=== PATIENT | female | born 1975 | race African-American/Black ===

== ENCOUNTER 2024-08-04 15:11 | Outpatient (CLI) | payer OTHER, SELFPAY ==
[2024-08-04 16:01] LABS: Basophils Absolute Auto 0.1 K/mm3 (0.0-0.1); Basophils Percent Auto 0.5 % (0.2-1.2); Eosinophils Absolute Auto 0.1 K/mm3 (0-0.3); Hemoglobin 8.2 g/dL (12.0-15.0); Immature Granulocyte Absolute 0.05 K/mm3 (0.00-0.031); Immature Granulocyte Percent A 0.5 % (0-0.5); Lymphocytes Absolute Auto 3.65 K/mm3 (0.9-3.2); Mean Corpuscular HGB Conc 31.5 g/dl (32-36); Mean Corpuscular Hemoglobin 23.2 pg (26-34); Mean Corpuscular Volume 73.7 fl (80-100); Monocytes Absolute Auto 0.4 K/mm3 (0.1-0.6); Neutrophils Absolute Auto 6.8 K/mm3 (1.3-6.7); Platelet Count Result 377 k/mm3 (150-375); Red Blood Count 3.53 M/mm3 (4.2-5.4); Red Cell Distribution Width 16.5 % (11.5-14.5); White Blood Count 11.1 K/mm3 (4.5-10.0)
[2024-08-04 16:31] LABS: Band Neutrophils Percent 0 % (0-6); Platelet Estimate Slightly Increased (Adequate); Schistocytes None Seen
[2024-08-04 16:32] LABS: Anisocytosis 2+; Hypochromasia 1+; Microcytosis 1+ (NORMAL)
[2024-08-04 16:43] LABS: Vitamin D 25 Hydroxy < 12.8 ng/mL
--- OUTSIDE RECORDS SUMMARY | 2024-08-04 17:06 | XMS_ITS | Clinical Summary ---
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 Gender Identity Not on file Sexual Orientation Not on file Plan of Treatment Health Maintenance Due Date Last Done Comments Hepatitis C Virus (HCV) Screening 1974 TdaP Immunization 1974 Hepatitis B Immunization (1 of 3 - 19+ 3-dose series) 1993 Pap Smear 1995 Cervical Cancer Screening (CCS) 02/26/2004 HPV/Cotest 02/26/2004 Discussion re Starting/Frequ ency of Mammograms 2014 Colonoscopy 2019 Colorectal Cancer Screening 2019 Influenza Immunization (#1) 2023 SARS-COV-2 Immunization ( season) 2023 Cologuard 02/26/2024 Immunochemical Fecal Occult Blood 02/26/2024 Mammogram 02/26/2024 Pneumococcal Immunization (5 0+ years) (1 of 1 - PCV) 02/26/2024 Zoster Immunization (1 of 2) 02/26/2024 Respiratory Syncytial Virus (RSV) Immunization (Adult) (1 - 1-dose 75+ series) 2049 Meningococcal Immunization (ACWY) Aged Out No longer eligible based on patient's age to complete this topic Pneumococcal Immunization Combined Aged Out No longer eligible based on patient's age to complete this topic Rotavirus Immunization Aged Out No lo nger eligible based on patient's age to complete this topic
[2024-08-05 17:44] LABS: Prolactin. 6.9 ng/mL
== END 2024-08-04 15:12 | disposition home or self-care (01) ==
PROVIDERS: Visit Provider Nurse Practitioner Obstetrics & Gynecology
DX: N93.9 Abnormal uterine and vaginal bleeding, unspecified (principal)
CPT/HCPCS: 36415; 82306; 84146; 84443; 85025

== ENCOUNTER 2024-08-31 16:02 | Outpatient (CLI) | payer OTHER, SELFPAY ==
--- NOTE | ~2024-08-31 | US_ITS ---
Pelvic ultrasound. Clinical History: Abnormal uterine bleeding Technique: Realtime transabdominal and transvaginal scanning of the pelvis was performed. Color flow Doppler and Doppler spectral analysis were performed. Findings: The uterus is anteverted. The endometrial stripe has a thickness of 4 mm. Small posterior wall fibroid measures 1.7 cm in diameter.. The right ovary is not visualized. The left ovary measures 4.0 x 3.5 x 4.0 cm. Simple left ovarian cyst measures 2.8 cm in diameter. There is no evidence of free fluid in the cul de sac. Impression: 1.7 cm uterine fibroid. 2.8 cm simple left ovarian cyst. Reviewed, dictated and finalized at location . Impression: 1.7 cm uterine fibroid. 2.8 cm simple left ovarian cyst.
== END 2024-08-31 16:03 | disposition home or self-care (01) ==
PROVIDERS: Visit Provider Nurse Practitioner Obstetrics & Gynecology
DX: N83.292 Other ovarian cyst, left side (principal); D25.9 Leiomyoma of uterus, unspecified
CPT/HCPCS: 76830; 76856